=== PATIENT | female | born 1985 | race Caucasian/White ===

== ENCOUNTER 2018-05-09 13:20 | Emergency (ER) | END 2018-05-09 15:56 | disposition home or self-care (01) ==

== ENCOUNTER 2018-07-15 20:22 | Emergency (ER) | END 2018-07-15 23:41 | disposition home or self-care (01) ==

== ENCOUNTER 2018-07-19 18:26 | Emergency (ER) | END 2018-07-19 22:33 | disposition home or self-care (01) ==

== ENCOUNTER 2019-02-04 21:07 | Emergency (ER) | payer MEDICAID ==
[~2019-02-04] VITALS: Ht 167.6 cm; Wt 68.2 kg
[~2019-02-04 21:07] MED LIST: AZIT250T PO; BENZ200C68 PO; CYCL10TA7 PO; IBUP-1542 PO; PROM5SYR2 PO
[2019-02-04 21:11] VITALS: Ht 167.6 cm; Wt 68.2 kg
[2019-02-05] MEDS ORDERED: AZIT250T PO (01:53)
[2019-02-05] MEDS ORDERED: ACET160O41 PO (01:54)
[2019-02-05] MEDS ORDERED: DEXAMETHASONE 10 MG/ML 1 ML INJ IM ONE (02:00)
--- NOTE | 2019-02-05 02:14 | ERD ---
ER Documentation Chief Complaint Chief Complaint cough w/ ST x4 days HPI 33-year-old healthy female with no past medical surgical history who presents with 4-day complaint of sore throat and cough. Cough is nonproductive. Had more URI type symptoms about a week ago with runny nose, subjective fevers has since resolved. Sore throat made worse by persistent coughing. She denies muffled voice or history of strep throat infection. She otherwise denies fevers, chills, nausea, vomiting, diarrhea, abdominal pain, any symptoms. Time examination patient is nontoxic-appearing able to speak in full sentences without any distress. ROS All systems reviewed and are negative except as per history of present illness. Medications Home Meds Active Scripts Acetaminophen* (Acetaminophen* Susp) 160 Mg/5 Ml Oral.susp, 320 MG PO Q4H PRN for PAIN OR FEVER MDD 5, #1 BOTTLE Prov:AROLDO NICHOLS PA-C 02/05/19 Azithromycin* (Zithromax*) 250 Mg Tablet, 250 MG PO .ZPAROSIO DIRECTED, #6 TAB TAKE 500 MG (2 TABS) THE FIRST DAY THEN 250 MG (1 TAB) DAYS 2-5 Prov:AROLDO NICHOLS PA-C 02/05/19 Benzonatate* (Benzonatate*) 200 Mg Capsule, 200 MG PO TID PRN for COUGH, #15 CAP Prov:DONNA SANTANA PA-C 07/19/18 Ibuprofen* (Motrin*) 600 Mg Tab, 600 MG PO Q8, #30 TAB Prov:DEMIAN TOURE MD 07/15/18 Promethazine HCl/Codeine (Prometh-Codein 6.25-10 mg/5 ml) 5 Ml Syrup, 5 ML PO QHS for 7 Days, #120 ML Prov:DEMIAN TOURE MD 07/15/18 Azithromycin* (Zithromax*) 250 Mg Tablet, 250 MG PO .ZPAROSIO DIRECTED, #6 TAB TAKE 500 MG (2 TABS) THE FIRST DAY THEN 250 MG (1 TAB) DAYS 2-5 Prov:DEMIAN TOURE MD 07/15/18 Cyclobenzaprine Hcl* (Cyclobenzaprine Hcl*) 10 Mg Tablet, 10 MG PO Q12 PRN for MUSCLE SPASMS, #20 TAB Prov:CATHRYN DISLA 05/09/18 Ibuprofen* (Motrin*) 600 Mg Tab, 600 MG PO Q6H PRN for PAIN AND OR ELEVATED TEMP, #30 TAB Prov:CATHRYN DISLA 05/09/18 Allergies Allergies: Coded Allergies: No Known Allergy (Unverified , 07/19/18) PMhx/Soc History of Surgery: Yes ( X2) Anesthesia Reaction: No Hx Neurological Disorder: No Hx Respiratory Disorders: Yes (Bronchitis) Hx Cardiac Disorders: No Hx Psychiatric Problems: No Hx Miscellaneous Medical Probl: No Hx Alcohol Use: No Hx Substance Use: No Hx Tobacco Use: No Smoking Status: Never smoker Physical Exam Vitals Vital Signs Date Temp Pulse Resp B/P (MAP) Pulse Ox O2 O2 Flow FiO2 Time Delivery Rate 02/04/19 98.4 82 18 118/70 99 21:11 (86) Physical Exam I have reviewed the triage vital signs. Const: Well nourished, well developed, appears stated age Eyes: PERRL, no conjunctival injection HENT: NCAT, Neck supple without meningismus, prominent throat erythema, mild swelling, no petechiae or exudates CV: RRR, Warm, well-perfused extremities RESP: CTAB, Unlabored respiratory effort GI: soft, non-tender, non-distended, no masses MSK: No gross deformities appreciated Skin: Warm, dry. No rashes Neuro: grossly non focal Psych: Appropriate mood and affect. Results 24 hrs Current Medications Medications Dose Sig/Deshaun Start Time Status Last (Trade) Ordered Route PRN Stop Time Admin Dose Reason Admin 10 mg ONCE ONCE 02/05/19 DC 02/05/19 Dexamethasone IM 02:00 01:57 (Decadron) 02/05/19 02:01 Ibuprofen 600 mg ONCE ONCE 02/05/19 (Motrin) PO 02:30 02/05/19 02:31 Procedures/MDM 33 yo female pt presenting with worsening of sore throat and cough with reassuring exam. No history of immunocompromise. Nontoxic appearance. Patient euvolemic with no trismus and no airway compromise. Able to tolerate PO. Unlikely [employer]LE[employer]GER, RPA, Lud[place]igs, epiglottitis, acute HIV, or EBV. Centor negative for strep. Plan: Pain control, Z-Mario patient instructed to take medication only if symptoms do not improve next 48 hours, expressing understanding Plan to DC home with prompt outpatient PCP follow up; return precautions discussed DISPOSITION PLAN: We discussed follow up with the patient's primary care doctor within 24 to 48 hours. Patient counseled regarding my diagnostic impression and care plan. Prior to discharge all questions answered. Pt agrees with treatment plan and understands strict return precautions. Precautionary instructions provided including instructions to return to the ER if not improving or for any worsening or changing symptoms or concerns. Departure Diagnosis: Primary Impression: Sore throat Additional Impression: Cough Condition: Stable Patient Instructions: Self-Care for Sore Throats, Cough, Chronic, Uncertain Cause, (Adult) Additional Instructions: Call your primary care doctor TOMORROW for an appointment during the next 2-3 days.See the doctor sooner or return here if your condition worsens before your appointment time. AROLDO NICHOLS PA-C Feb 05, 2019 02:14
[2019-02-05 02:28] VITALS: BP 120/72; PULSE 79; RESP 19
[2019-02-05] MEDS ORDERED: IBUPROFEN 600 MG TAB PO ONE (02:30)
== END 2019-02-05 02:29 | disposition home or self-care (01) ==
LOC: FTE 21:07
DX: J02.9 Acute pharyngitis, unspecified (principal)
CPT/HCPCS: 96372; J1100; Z7502; Z7610

== ENCOUNTER → 2019-05-02 | Emergency (ER) | payer MEDICAID ==
[~2019-05-02] VITALS: Ht 154.9 cm; Wt 68.5 kg
[~2019-05-02] MED LIST changes: +ACET160O41 PO; +KETOROLAC 60 MG INJ IM STA; +PROMETHAZINE/CODEINE 5ML CUP PO ONE
[2019-05-02 19:27] VITALS: BP 121/69; PULSE 97; RESP 18; Ht 154.9 cm; Wt 68.5 kg
--- NOTE | 2019-05-02 20:30 | ERD ---
ER Documentation Chief Complaint Chief Complaint FEVER, COUGH X'S 1 DAY HPI 33-year-old female presents with fever and cough since yesterday. The concern for she was diagnosed with bronchitis 3 months ago. She has a child at home with similar symptoms. She has no history of vomiting or abdominal pain, diarrhea, neck stiffness, rashes. ROS All systems reviewed and are negative except as per history of present illness. Medications Home Meds Active Scripts Ibuprofen* (Motrin*) 600 Mg Tab, 600 MG PO Q6, #15 TAB Prov:BENJY MENJIVAR MD 05/02/19 Promethazine HCl/Codeine (Prometh-Codein 6.25-10 mg/5 ml) 5 Ml Syrup, 5 ML PO QID for 5 Days Prov:BENJY MENJIVAR MD 05/02/19 Acetaminophen* (Acetaminophen* Susp) 160 Mg/5 Ml Oral.susp, 320 MG PO Q4H PRN for PAIN OR FEVER MDD 5, #1 BOTTLE Prov:AROLDO NICHOLS PA-C 02/05/19 Azithromycin* (Zithromax*) 250 Mg Tablet, 250 MG PO .ZPACK DIRECTED, #6 TAB TAKE 500 MG (2 TABS) THE FIRST DAY THEN 250 MG (1 TAB) DAYS 2-5 Prov:AROLDO NICHOLS PA-C 02/05/19 Benzonatate* (Benzonatate*) 200 Mg Capsule, 200 MG PO TID PRN for COUGH, #15 CAP Prov:DONNA SANTANA PA-C 07/19/18 Ibuprofen* (Motrin*) 600 Mg Tab, 600 MG PO Q8, #30 TAB Prov:DEMIAN TOURE MD 07/15/18 Promethazine HCl/Codeine (Prometh-Codein 6.25-10 mg/5 ml) 5 Ml Syrup, 5 ML PO QHS for 7 Days, #120 ML Prov:DEMIAN TOURE MD 07/15/18 Azithromycin* (Zithromax*) 250 Mg Tablet, 250 MG PO .ZPACK DIRECTED, #6 TAB TAKE 500 MG (2 TABS) THE FIRST DAY THEN 250 MG (1 TAB) DAYS 2-5 Prov:DEMIAN TOURE MD 07/15/18 Cyclobenzaprine Hcl* (Cyclobenzaprine Hcl*) 10 Mg Tablet, 10 MG PO Q12 PRN for MUSCLE SPASMS, #20 TAB Prov:CATHRYN DISLA 05/09/18 Ibuprofen* (Motrin*) 600 Mg Tab, 600 MG PO Q6H PRN for PAIN AND OR ELEVATED TEMP, #30 TAB Prov:CATHRYN DISLA 05/09/18 Allergies Allergies: Coded Allergies: No Known Allergy (Unverified , 07/19/18) PMhx/Soc History of Surgery: Yes ( X2) Anesthesia Reaction: No Hx Neurological Disorder: No Hx Respiratory Disorders: Yes (Bronchitis) Hx Cardiac Disorders: No Hx Psychiatric Problems: No Hx Miscellaneous Medical Probl: No Hx Alcohol Use: No Hx Substance Use: No Hx Tobacco Use: No Smoking Status: Never smoker FmHx Family History: No diabetes, No coronary disease, No other Physical Exam Vitals Vital Signs Date Temp Pulse Resp B/P (MAP) Pulse Ox O2 O2 Flow FiO2 Time Delivery Rate 05/02/19 101.6 97 18 121/69 97 19:27 (86) Physical Exam Const: No acute distress Head: Atraumatic Eyes: Normal Conjunctiva ENT: Normal External Ears, Nose and Mouth. TMs and oropharynx normal. Neck: Full range of motion. No meningismus. Resp: Clear to auscultation bilaterally. Dry cough without rales, wheezing or retractions. Cardio: Regular rate and rhythm, no murmurs Abd: Soft, non tender, non distended. Normal bowel sounds Skin: No petechiae or rashes Back: No midline or flank tenderness Ext: No cyanosis, or edema Neur: Awake and alert Psych: Normal Mood and Affect Results 24 hrs Laboratory Tests Test 05/02/19 19:49 POC Beta HCG, Qualitative NEGATIVE Current Medications Medications Dose Sig/Deshaun Start Time Status Last (Trade) Ordered Route PRN Stop Time Admin Dose Reason Admin Ketorolac 60 mg ONCE STAT 05/02/19 DC 05/02/19 Tromethamine IM 19:42 19:51 (Toradol) 05/02/19 19:44 Promethazine 10 ml ONCE ONCE 05/02/19 DC 05/02/19 HCl/ PO 20:00 19:50 Codeine 05/02/19 20:01 (Phenergan/ Codeine) Procedures/MDM Chest X-ray 1V Interpreted by me: Soft Tissue: No acute abnormalities Bones: No acute abnormalities Mediastinum/Cardiac Silhouette/Lungs: No acute abnormalities. Impression- normal 1 view chest x-ray Patient given Toradol 60 mg IM. Patient took 2 Tylenol 2 hours ago. Patient observed till fever improved. Patient has no signs of hypoxemia, rest or distress, abdominal pain, additional concerning signs or symptoms. Patient presents with fever and URI symptoms for 1 day, likely viral URI. She will be treated with ibuprofen, promethazine with codeine, primary care follow-up and return precautions. The patient was stable with no new complaints during the ER course. Clinically, there is no current evidence to suggest meningitis, sepsis, acute abdomen, pneumonia, stroke, acute coronary syndrome, pulmonary embolism, aortic dissection or any other emergent condition appearing to require further evaluation or hospitalization. Patient counseled regarding my diagnostic impression and care plan. Prior to discharge all questions answered. Pt agrees with treatment plan and understands strict return precautions. Pt is instructed to follow up with primary care provider within 24-48 hours. Precautionary instructions provided including instructions to return to the ER if not improving or for any worsening or changing symptoms or concerns. Disclaimer: Inadvertent spelling and grammatical errors are likely due to EHR/dictation software use and do not reflect on the overall quality of patient care. Also, please note that the electronic time recorded on this note does not necessarily reflect the actual time of the patient encounter. Departure Diagnosis: Primary Impression: URI, acute Additional Impression: Fever Fever type: unspecified Qualified Codes: R50.9 - Fever, unspecified Condition: Stable Patient Instructions: Fever Control (Adult), Uri, Viral, No Abx (Adult) Additional Instructions: x ray normal. . Cheque otro vez con villegas doctor primario en el proximo canales or regresa para mas o nueva simptomas. Probablamente un virus que dura 2-4 canales. cheque otro vez en el proximo marian para mas simptomas- vomito, dolor, swapnil, problemas con respirando, o con villegas doctor primario. BENJY MENJIVAR MD May 02, 2019 20:30
== END | disposition home or self-care (01) ==
LOC: FTE 19:20
DX: J06.9 Acute upper respiratory infection, unspecified (principal)
CPT/HCPCS: 71045; 81025; 96372; J1885; Z7502; Z7610

== ENCOUNTER 2019-05-07 10:48 | Emergency (ER) | payer MEDICAID ==
[~2019-05-07] VITALS: Wt 68.0 kg
[~2019-05-07 10:48] MED LIST changes: -KETOROLAC 60 MG INJ IM STA; -PROMETHAZINE/CODEINE 5ML CUP PO ONE
[2019-05-07 11:00] VITALS: BP 113/78; PULSE 85; RESP 18
[2019-05-07] MEDS ORDERED: ALBUTEROL 0.083% (NEB) 2.5 MG/3 ML AMP NEB STA (12:14)
[2019-05-07] MEDS ORDERED: DEXAMETHASONE 10 MG/ML 1 ML INJ IM STA (12:14)
[2019-05-07] MEDS ORDERED: IPRATROPIUM (NEB) 0.5 MG/2.5 ML AMP NEB STA (12:14)
[2019-05-07] MEDS ORDERED: AZIT250T PO (14:33)
[2019-05-07] MEDS ORDERED: BENZ-6 PO (14:34)
[2019-05-07] MEDS ORDERED: IBUP-1542 PO (14:34)
--- NOTE | 2019-05-07 15:09 | ERD ---
ER Documentation Chief Complaint Chief Complaint FEVER X 1 WEEK HPI Patient is a 33-year-old female, presents the ER for concerns of a cough and fever x1 week. Patient was seen here 5 days and states since that time her cough is getting worse. Patient states her cough is productive and she occasionally feels like she is wheezing. Patient states she is lost her voice secondary to coughing. Patient states she continues to have fevers, T-max of 101. No recent travel. Patient's is also sick contact. Patient denies any chest pain, shortness of breath, nausea or vomiting, abdominal pain, diarrhea. ROS All systems reviewed and are negative except as per history of present illness. Medications Home Meds Active Scripts Ibuprofen* (Motrin*) 600 Mg Tab, 600 MG PO Q6, #30 TAB Prov:SHEILA PALOMINO PA-C 05/07/19 Benzonatate* (Tessalon Perle*) 100 Mg Capsule, 100 MG PO Q8H PRN for COUGH, #20 CAP Prov:SHEILA PALOMINO PA-C 05/07/19 Azithromycin* (Zithromax*) 250 Mg Tablet, 250 MG PO .ZPACK DIRECTED, #6 TAB TAKE 500 MG (2 TABS) THE FIRST DAY THEN 250 MG (1 TAB) DAYS 2-5 Prov:SHEILA PALOMINO PA-C 05/07/19 Ibuprofen* (Motrin*) 600 Mg Tab, 600 MG PO Q6, #15 TAB Prov:BENJY MENJIVAR MD 05/02/19 Promethazine HCl/Codeine (Prometh-Codein 6.25-10 mg/5 ml) 5 Ml Syrup, 5 ML PO QID for 5 Days Prov:BENJY MENJIVAR MD 05/02/19 Acetaminophen* (Acetaminophen* Susp) 160 Mg/5 Ml Oral.susp, 320 MG PO Q4H PRN for PAIN OR FEVER MDD 5, #1 BOTTLE Prov:AROLDO NICHOLS PA-C 02/05/19 Azithromycin* (Zithromax*) 250 Mg Tablet, 250 MG PO .ZPACK DIRECTED, #6 TAB TAKE 500 MG (2 TABS) THE FIRST DAY THEN 250 MG (1 TAB) DAYS 2-5 Prov:AROLDO NICHOLS PA-C 02/05/19 Benzonatate* (Benzonatate*) 200 Mg Capsule, 200 MG PO TID PRN for COUGH, #15 CAP Prov:DONNA SANTANA PA-C 07/19/18 Ibuprofen* (Motrin*) 600 Mg Tab, 600 MG PO Q8, #30 TAB Prov:DEMIAN TOURE MD 07/15/18 Promethazine HCl/Codeine (Prometh-Codein 6.25-10 mg/5 ml) 5 Ml Syrup, 5 ML PO QHS for 7 Days, #120 ML Prov:DEMIAN TOURE MD 07/15/18 Azithromycin* (Zithromax*) 250 Mg Tablet, 250 MG PO .ZPACK DIRECTED, #6 TAB TAKE 500 MG (2 TABS) THE FIRST DAY THEN 250 MG (1 TAB) DAYS 2-5 Prov:DEMIAN TOURE MD 07/15/18 Cyclobenzaprine Hcl* (Cyclobenzaprine Hcl*) 10 Mg Tablet, 10 MG PO Q12 PRN for MUSCLE SPASMS, #20 TAB Prov:CATHRYN DISLA F 05/09/18 Ibuprofen* (Motrin*) 600 Mg Tab, 600 MG PO Q6H PRN for PAIN AND OR ELEVATED TEMP, #30 TAB Prov:PASILABANKIERANAR F 05/09/18 Allergies Allergies: Coded Allergies: No Known Allergy (Unverified , 07/19/18) PMhx/Soc History of Surgery: Yes ( X2) Anesthesia Reaction: No Hx Neurological Disorder: No Hx Respiratory Disorders: Yes (Bronchitis) Hx Cardiac Disorders: No Hx Psychiatric Problems: No Hx Miscellaneous Medical Probl: No Hx Alcohol Use: No Hx Substance Use: No Hx Tobacco Use: No FmHx Family History: No diabetes Physical Exam Vitals Vital Signs Date Temp Pulse Resp B/P (MAP) Pulse Ox O2 O2 Flow FiO2 Time Delivery Rate 05/07/19 96.8 14:08 05/07/19 85 18 99 21 12:44 05/07/19 100.1 85 18 113/78 99 11:00 (90) Physical Exam GENERAL: Well-developed, well-nourished female. Appears in no acute distress. HEAD: Normocephalic, atraumatic. No deformities or ecchymosis. EYE: Pupils equal, round, and reactive to light. EOMs intact. No conjunctival erythema. No eye discharge. ENT: External ear without any masses or tenderness. Auditory canals clear bilaterally. TM visualized bilaterally, non-erythematous, non-bulging. Nasal mucosa pink with no discharge. Voice hoarseness noted secondary to laryngitis. Oropharynx is pink without any tonsillar erythema or exudates. No uvula deviation. No kissing tonsils. NECK: Supple. No meningismus. Normal ROM of the neck. LUNG: Faint bilateral expiratory wheezing. No abdominal retractions, nasal flaring, no tripoding. HEART: Regular rate and rhythm. No murmurs, rubs or gallops. EXTREMITES: Equal pulses bilaterally. No peripheral clubbing, cyanosis or edema. No unilateral leg swelling. NEUROLOGIC: Alert and oriented to person, place and time. Moving all four extremities. 5/5 strength in all extremities. Steady gait. SKIN: Normal color. Warm and dry. No rashes or lesions. Results 24 hrs Current Medications Medications Dose Sig/Deshaun Start Time Status Last (Trade) Ordered Route PRN Stop Time Admin Dose Reason Admin Albuterol 5 mg ONCE STAT 05/07/19 DC 05/07/19 (Proventil NEB 12:14 12:42 0.083% (Neb)) 05/07/19 12:16 Ipratropium 0.5 mg ONCE STAT 05/07/19 DC 05/07/19 [place] NEB 12:14 12:42 (Atrovent 05/07/19 12:16 0.02% (Neb)) 10 mg ONCE STAT 05/07/19 DC 05/07/19 Dexamethasone IM 12:14 12:33 (Decadron) 05/07/19 12:16 Procedures/MDM ED COURSE: The patient was stable throughout ED course. I kept the patient and/or family informed of laboratory and diagnostic imaging results throughout the ED course. DIAGNOSTIC IMAGING: Read by radiologist. Patient: JUAN C CAVANAUGH : 1985 Age: 33 Sex: F MR #: [id number] DOS: 05/07/19 1214 Ordering MD: SHEILA PALOMINO PA-C Location: [facility] Room/Bed: PROCEDURE: XR Chest. CLINICAL INDICATION: Cough, fever TECHNIQUE: A single AP view of the chest was obtained. COMPARISON: DR GRAVES 05/02/2019; DR GRAVES 07/19/2018 FINDINGS: No focal airspace opacification, pleural effusion or pneumothorax is seen. The cardiomediastinal silhouette is within normal limits for size. The osseous structures are unremarkable. IMPRESSION: Unremarkable chest x-ray. No significant change from chest x-ray dated 05/02/2019. RPTAT: HH .Wen Engel MD, MD Date Time Electronically viewed and signed by .Wen Engel MD, on 05/07/2019 13:56 .G/ CC: SHEILA PALOMINO PA-C [id number] MEDICAL DECISION MAKING: This is a 33-year-old female, presents to the ER for concerns of cough, fever and voice hoarseness. Patient states her symptoms started 7 days ago. Vital signs were reviewed. Patient was noted to have low-grade temperature 100.1 F. Vital signs were reviewed. Patient was afebrile. Patient was not hypoxic. ENT exam revealed findings consistent with laryngitis. Lung exam did reveal faint bilateral expiratory wheezing. Patient was given a breathing treatment as well as Decadron. Upon reexamination, patient reported improvement in symptoms. Patient did have a chest x-ray done 5 days ago however she stated that her cough is getting worse so she wanted to repeat chest x-ray. Chest x-ray was obtained per patient's request. She was unremarkable. See formal report above. At this time, patient's presentation is most consistent with bronchitis with wheezing. Low suspicion for pneumonia, meningitis, sinusitis, otitis externa, acute otitis media, strep pharyngitis, epiglottitis or peritonsillar abscess. Patient was nontoxic, [id number] prior to discharge. Patient's temperature was within normal limits prior to discharge. PRESCRIPTIONS: Albuterol, Z-Mario, Tessalon Perles DISCHARGE: At this time, patient is stable for discharge and outpatient management. Supportive therapies such as OTC throat lozenges, salt water gurgles, popsicles and jello discussed. I have instructed the patient to follow-up with his/her primary care physician in 1-2 days. I have instructed the patient to promptly return to the ER for any new or worsening symptoms including increased pain, swelling, fever, nausea, vomiting, weakness or difficulty breathing. The patient and/or family expressed understanding of and agreement with this plan. All questions were answered. Home care instructions were provided. Disclaimer: Inadvertent spelling and grammatical errors are likely due to EHR/di ctation software use and do not reflect on the overall quality of patient care. Also, please note that the electronic time recorded on this note does not necessarily reflect the actual time of the patient encounter. Departure Diagnosis: Primary Impression: Bronchitis Additional Impression: Laryngitis Condition: Fair Patient Instructions: Bronchitis With Wheezing (Adult) Referrals: [facility] YOU HAVE RECEIVED A MEDICAL SCREENING EXAM AND THE RESULTS INDICATE THAT YOU DO NOT HAVE A CONDITION THAT REQUIRES URGENT TREATMENT IN THE EMERGENCY DEPARTMENT. FURTHER EVALUATION AND TREATMENT OF YOUR CONDITION CAN WAIT UNTIL YOU ARE SEEN IN YOUR DOCTORS OFFICE WITHIN THE NEXT 1-2 DAYS. IT IS YOUR RESPONSIBILITY TO MAKE AN APPOINTMENT FOR [facility]. IF YOU HAVE A PRIMARY DOCTOR --you should call your primary doctor and schedule an appointment IF YOU DO NOT HAVE A PRIMARY DOCTOR YOU CAN CALL OUR PHYSICIAN REFERRAL HOTLINE AT IF YOU CAN NOT AFFORD TO SEE A PHYSICIAN YOU CAN CHOSE FROM THE FOLLOWING [facility] [address] [facility]. [facility] [address] [facility]. [facility] [address] [address] [facility] [address] [facility]. [facility]. [address] [facility]. [facility] YOU HAVE RECEIVED A MEDICAL SCREENING EXAM AND THE RESULTS INDICATE THAT YOU DO NOT HAVE A CONDITION THAT REQUIRES URGENT TREATMENT IN THE EMERGENCY DEPARTMENT. FURTHER EVALUATION AND TREATMENT OF YOUR CONDITION CAN WAIT UNTIL YOU ARE SEEN IN YOUR DOCTORS OFFICE WITHIN THE NEXT 1-2 DAYS. IT IS YOUR RESPONSIBILITY TO MAKE AN APPOINTMENT FOR [facility]. IF YOU HAVE A PRIMARY DOCTOR --you should call your primary doctor and schedule and appointment IF YOU DO NOT HAVE A PRIMARY DOCTOR YOU CAN CALL OUR PHYSICIAN REFERRAL HOTLINE AT . IF YOU CAN NOT AFFORD TO SEE A PHYSICIAN YOU CAN CHOSE FROM THE FOLLOWING [facility] INSTITUTIONS: [facility] [address] [place] [address] [facility] [address] [place], [place] [id number] [place] [address] [address] [place] [address] Additional Instructions: Call your primary care doctor TOMORROW for an appointment during the next 1-2 days.See the doctor sooner or return here if your condition worsens before your appointment time. SHEILA PALOMINO PA-C May 07, 2019 15:09
== END 2019-05-07 14:46 | disposition home or self-care (01) ==
LOC: FTE 10:48
DX: J20.9 Acute bronchitis, unspecified (principal); J04.0 Acute laryngitis
CPT/HCPCS: 71045; 94664; 96372; J1100; Z7502; Z7610